=== PATIENT | female | born 1995 | race Caucasian/White ===

== ENCOUNTER 2017-09-20 15:27 | Emergency (ER) | payer MEDICAID ==
[~2017-09-20] VITALS: Ht 170.2 cm; Wt 77.3 kg
[~2017-09-20 15:27] MED LIST: PROM25TA14 PO
[2017-09-20] MEDS ORDERED: dexamethasone sod phosphate 10mg/ml inj PO STA (18:02)
[2017-09-20] MEDS ORDERED: benzonatate 100mg capsule PO ONE (18:05)
[2017-09-20] MEDS ORDERED: oseltamivir phos 75mg capsule PO ONE (18:05)
[2017-09-20] MEDS ORDERED: BENZ-38 PO (18:15)
[2017-09-20] MEDS ORDERED: DOXY100T2 PO (18:15)
[2017-09-20] MEDS ORDERED: ipratropium/albuterol 3ml nebule NEB ONE (18:20)
[2017-09-20] MEDS ORDERED: normal saline 1000ML IV soln IVB ONE (19:05)
[2017-09-20] MEDS ORDERED: ondansetron/PF 4mg/2ml inj IV ONE (19:05)
[2017-09-20 19:11] VITALS: BP 157/81
== END 2017-09-20 19:12 | disposition home or self-care (01) ==
LOC: ER 15:27
DX: J40 Bronchitis, not specified as acute or chronic (principal); Z56.0 Unemployment, unspecified; Z79.899 Other long term (current) drug therapy
CPT/HCPCS: 94640; 94760; 99284; J1100

== ENCOUNTER 2018-07-06 | Emergency (ER) | payer MEDICAID ==
[~2018-07-06] VITALS: Ht 170.2 cm; Wt 68.2 kg
[~2018-07-06] MED LIST changes: +DOXY100T2 PO
[2018-07-06 00:06] VITALS: BP 130/68
== END 2018-07-06 00:39 | disposition home or self-care (01) ==
LOC: ER 00:01
DX: I87.9 Disorder of vein, unspecified (principal); L02.413 Cutaneous abscess of right upper limb; J45.909 Unspecified asthma, uncomplicated; F11.90 Opioid use, unspecified, uncomplicated; Z79.2 Long term (current) use of antibiotics; Z79.899 Other long term (current) drug therapy; Z56.0 Unemployment, unspecified
CPT/HCPCS: 99281

== ENCOUNTER 2018-07-30 14:12 | Emergency (ER) | payer MEDICAID ==
[~2018-07-30] VITALS: Ht 170.2 cm; Wt 71.6 kg
[2018-07-30 14:19] VITALS: BP 112/58
--- NOTE | 2018-07-30 15:10 | NUR ---
PT REPORTS SHE IS USING HEROIN IV AND IS TRYING TO QUIT - PA AWARE - HEART TONES HEARD AT 138 IN [address] WITH HAND HELD DOPPLER
[2018-07-30 16:05] LABS: CLARITY,URINE CLEAR (Clear); COLOR,URINE STRAW (Yellow); GLUCOSE, URINE NEGATIVE (Neg); KETONES,URINE NEGATIVE (Neg); LEUKOCYTE ESTERASE ,URINE NEGATIVE (Neg); NITRITES, URINE NEGATIVE (Neg); OCCULT BLOOD,URINE NEGATIVE (Neg); PH,URINE 7.5 (4.8-8.0); PROTEIN,URINE NEGATIVE (Neg); UROBILINOGEN,URINE 0.2 E.U/dL (0.2-1.0)
[2018-07-30 16:23] LABS: UA COLLECTION TYPE CLN CATCH MIDSTREAM
== END 2018-07-30 20:05 | disposition home or self-care (01) ==
LOC: ER 14:12
DX: O99.322 Drug use complicating pregnancy, second trimester (principal); F11.10 Opioid abuse, uncomplicated; O26.892 Other specified pregnancy related conditions, second trimester; R10.2 Pelvic and perineal pain; J45.909 Unspecified asthma, uncomplicated; Z3A.20 20 weeks gestation of pregnancy; Z79.899 Other long term (current) drug therapy; Z56.0 Unemployment, unspecified
CPT/HCPCS: 81003; 99283

== ENCOUNTER 2019-08-11 20:28 | Emergency (ER) | payer MEDICAID ==
[~2019-08-11] VITALS: Ht 170.2 cm; Wt 72.7 kg
[2019-08-11] MEDS ORDERED: LIDOcaine 1% W/epiNEPHrine 1:100,000 20ml vial SQ ONE (21:35)
[2019-08-11] MEDS ORDERED: CEPH500C5 PO (21:56)
[2019-08-11] MEDS ORDERED: SULF1TAB49 PO (21:56)
--- NOTE | 2019-08-11 22:02 | NUR ---
DAGOBERTO SALINAS AT BEDSIDE FOR I&D OF ABSCESS. PT TOLERATED WELL. I KENNETHD THE PROCEDURE.
[2019-08-11 22:03] VITALS: BP 119/67
== END 2019-08-11 22:13 | disposition home or self-care (01) ==
LOC: ER 20:29
DX: L02.31 Cutaneous abscess of buttock (principal); J45.909 Unspecified asthma, uncomplicated; F11.90 Opioid use, unspecified, uncomplicated; Z56.0 Unemployment, unspecified
CPT/HCPCS: 10060; 99283

== ENCOUNTER 2019-11-23 09:54 | Emergency (ER) | payer MEDICAID ==
[~2019-11-23] VITALS: Ht 170.2 cm; Wt 72.5 kg
[2019-11-23 10:00] VITALS: BP 112/50
[2019-11-23 10:32] LABS: URINE HCG NEGATIVE (NEG)
[2019-11-23 10:37] LABS: CLARITY,URINE CLEAR (Clear); COLOR,URINE YELLOW (Yellow); GLUCOSE, URINE NEGATIVE (Neg); KETONES,URINE NEGATIVE (Neg); LEUKOCYTE ESTERASE ,URINE MODERATE (Neg); NITRITES, URINE POSITIVE (Neg); OCCULT BLOOD,URINE NEGATIVE (Neg); PROTEIN,URINE NEGATIVE (Neg)
[2019-11-23 10:41] LABS: UA COLLECTION TYPE CLN CATCH MIDSTREAM
[2019-11-23 10:44] LABS: BACTERIA,URINE 4+ /HPF (Neg); MUCUS STRANDS FEW /LPF (Neg); RBC,URINE 0-2 /HPF (0-2); SQUAMOUS EPITHELIAL CELL,UR FEW /LPF (FEW); WBC,URINE 30-50 /HPF (0-4)
[2019-11-23 10:46] LABS: TRICHOMONAS,URINE MOD /HPF (NEGATIVE)
[2019-11-23] MEDS ORDERED: azithromycin 250mg tablet PO ONE (11:20)
[2019-11-23] MEDS ORDERED: CefTRIAXone 1000mg IM Kit (w/lidocaine diluent) IM ONE (11:20)
== END 2019-11-23 12:20 | disposition home or self-care (01) ==
LOC: ER 09:54
DX: R82.90 Unspecified abnormal findings in urine (principal); R82.71 Bacteriuria; J45.909 Unspecified asthma, uncomplicated; F11.90 Opioid use, unspecified, uncomplicated; Z72.89 Other problems related to lifestyle; Z56.0 Unemployment, unspecified
CPT/HCPCS: 36415; 81001; 81025; 87077; 87088; 87186; 87491; 87591; 96372; 99283; J0696

== ENCOUNTER 2020-04-27 11:31 | Emergency (ER) | payer MEDICAID ==
[~2020-04-27] VITALS: Ht 170.2 cm; Wt 64.8 kg
[2020-04-27] MEDS ORDERED: LIDOcaine 1% W/epiNEPHrine 1:200,000 10ml vial IJ ONE (12:25)
[2020-04-27] MEDS ORDERED: LIDOcaine 1% w/epiNEPHrine 1:200,000 30ml vial IJ ONE (12:45)
[2020-04-27] MEDS ORDERED: SULF1TAB49 PO (13:38)
[2020-04-27] MEDS ORDERED: CEPH250T PO (13:38)
[2020-04-27 13:52] VITALS: BP 112/77
== END 2020-04-27 13:53 | disposition home or self-care (01) ==
LOC: ER 11:32
DX: L02.413 Cutaneous abscess of right upper limb (principal); M79.89 Other specified soft tissue disorders; J44.9 Chronic obstructive pulmonary disease, unspecified; F11.90 Opioid use, unspecified, uncomplicated; Z72.89 Other problems related to lifestyle; Z56.0 Unemployment, unspecified; Z79.2 Long term (current) use of antibiotics; Z79.899 Other long term (current) drug therapy
CPT/HCPCS: 10060; 99283

== ENCOUNTER 2022-02-24 10:01 | Emergency (ER) | payer MEDICAID ==
[2022-02-24 10:11] VITALS: BP 128/82
[2022-02-24] MEDS ORDERED: GABA-530 PO (10:20)
[2022-02-24] MEDS ORDERED: LORA-269 PO (10:20)
== END 2022-02-24 10:28 | disposition home or self-care (01) ==
LOC: ER 10:02
DX: F19.10 Other psychoactive substance abuse, uncomplicated (principal); J45.909 Unspecified asthma, uncomplicated; F15.20 Other stimulant dependence, uncomplicated; Z02.89 Encounter for other administrative examinations; Z56.0 Unemployment, unspecified
CPT/HCPCS: 99283